=== PATIENT | female | born 1950 | race Caucasian/White ===

== ENCOUNTER 2019-02-13 09:48 | Day surgery (SDC) | payer MEDICARE, BC ==
[~2019-02-13 09:48] MED LIST: CEFAZOLIN 1 GM/D5W RTU 1 GM/50 ML RTUPB IV ONE; LACTATED RINGERS 1000 ML IV PRN; LIDOCAINE 0.5% INJ-PF (5 MG/ML) 50 ML SDV SUBCUT PRN
[2019-02-13 10:34] LABS: APPEARANCE,URINE CLEAR; BILIRUBIN,URINE NEGATIVE (NEGATIVE); COLOR,URINE YELLOW; GLUCOSE, URINE >=500 mg/dL (NEGATIVE); KETONES,URINE NEGATIVE (NEGATIVE); LEUKOCYTE ESTERASE,URINE SMALL (NEGATIVE); NITRITE,URINE NEGATIVE (NEGATIVE); PROTEIN,URINE NEGATIVE (NEGATIVE); URINE SPECIFIC GRAVITY 1.029; UROBILINOGEN,URINE NEGATIVE mg/dL (<2.0)
--- NOTE | 2019-02-13 10:46 | RADIOLOGY REPORT (SQ) ---
EXAM DESCRIPTION: CHEST SINGLE VIEW COMPLETED DATE/TIME: 02/13/2019 10:20 am REASON FOR STUDY: PRE OP COMPARISON: None. EXAM PARAMETERS: NUMBER OF VIEWS: One view. TECHNIQUE: Single frontal radiographic view of the chest acquired. RADIATION DOSE: NA LIMITATIONS: None. FINDINGS: LUNGS AND PLEURA: No opacities, masses or pneumothorax. No pleural effusion. MEDIASTINUM AND HILAR STRUCTURES: No masses. Contour normal. HEART AND VASCULAR STRUCTURES: Heart normal in size. Normal vasculature. BONES: No acute findings. HARDWARE: None in the chest. OTHER: No other significant finding. IMPRESSION: NO ACUTE RADIOGRAPHIC FINDING IN THE CHEST. TECHNICAL DOCUMENTATION: JOB ID: [id number] [employer]- All Rights Reserved Reading location - IP/workstation name: [email or web address]
[2019-02-13 10:47] LABS: ABSOLUTE BASOPHILS # (AUTO) 0.1 10^3/uL (0.0-0.2); ABSOLUTE EOSINOPHILS # (AUTO) 0.1 10^3/uL (0.0-0.6); ABSOLUTE LYMPHOCYTES (AUTO) 3.1 10^3/uL (0.5-4.7); ABSOLUTE MONOCYTES (AUTO) 0.6 10^3/uL (0.1-1.4); ABSOLUTE NEUT (AUTO) 3.9 10^3/uL (1.7-8.2); BASOPHILS % (AUTO) 0.7 % (0-2); EOSINOPHILS % (AUTO) 1.3 % (0-6); HEMATOCRIT 39.3 % (36.0-47.0); HEMOGLOBIN 12.8 g/dL (12.0-15.5); LYMPHOCYTES % (AUTO) 40.3 % (13-45); MEAN CORPUSCULAR HEMOGLOBIN 27.8 pg (27.0-33.4); MEAN CORPUSCULAR HGB CONC 32.6 g/dL (32.0-36.0); MEAN CORPUSCULAR VOLUME 85 fl (80-97); MONOCYTES % (AUTO) 7.2 % (3-13); PLATELET COUNT 354 10^3/uL (150-450); RED BLOOD COUNT 4.61 10^6/uL (3.72-5.28); RED CELL DISTRIBUTION WIDTH 16.1 % (11.5-14.0); SEGMENTED NEUTROPHILS % (AUTO) 50.5 % (42-78); TOTAL CELLS COUNTED % (AUTO) 100 %; WHITE BLOOD COUNT 7.7 10^3/uL (4.0-10.5)
[2019-02-13 11:07] LABS: INTERNATIONAL RATION (INR) 0.92; PARTIAL THROMBOPLASTIN TIME 25.9 SEC (23.5-35.8); PROTHROMBIN TIME 12.4 SEC (11.4-15.4)
[2019-02-13] MEDS ORDERED: ONDANSETRON HCL INJ/PF 4 MG/2 ML SDV ONE (11:23)
[2019-02-13] MEDS ORDERED: RINGERS SOLUTION,LACTATED 250 ML IV ONE (11:31)
[2019-02-13] MEDS ORDERED: MIDAZOLAM 2 MG/2 ML INJ ONE (11:33)
[2019-02-13] MEDS ORDERED: PROPOFOL INJ 200 MG/20 ML VIAL IV ONE (11:33)
[2019-02-13] MEDS ORDERED: FENTANYL CITRATE INJ/PF 100 MCG/2 ML AMPUL ONE (11:33)
[2019-02-13] MEDS ORDERED: BUPIVACAINE HCL 0.5 % INJ/PF 30 ML SDV ONE (11:43)
[2019-02-13] MEDS ORDERED: LIDOCAINE 1% INJ-PF (10 MG/ML) 30 ML SDV ONE (11:43)
[2019-02-13] MEDS ORDERED: EPINEPHRINE INJ/PF 1 MG/1 ML AMPULE ONE (11:44)
[2019-02-13] MEDS ORDERED: DIPHENHYDRAMINE HCL 50 MG/ML VIAL IV PRN (12:18)
[2019-02-13] MEDS ORDERED: MORPHINE SULFATE 10 MG/ML INJ IV PRN (12:18)
[2019-02-13] MEDS ORDERED: MEPERIDINE HCL/PF INJ 25 MG/1 ML DISP.SYRIN IV PRN (12:18)
[2019-02-13] MEDS ORDERED: FENTANYL CITRATE INJ/PF 100 MCG/2 ML AMPUL IV PRN ×3 (12:18)
[2019-02-13] MEDS ORDERED: PROMETHAZINE HCL INJ 25 MG/1 ML VIAL IV PRN ×2 (12:18)
[2019-02-13] MEDS ORDERED: LIDOCAINE 1% INJ-PF (10 MG/ML) 30 ML SDV INJ ONE ×2 (12:28)
[2019-02-13] MEDS ORDERED: BUPIVACAINE HCL 0.5 % INJ/PF 30 ML SDV INJ ONE ×2 (12:29)
[2019-02-13] MEDS ORDERED: SODIUM BICARBONATE 8.4% INJ 50 MEQ/50 ML DISP.SYRIN IV ONE (12:30)
--- NOTE | 2019-02-13 13:22 | Operative Report ---
Operative Report DATE OF SURGERY: 02/13/19 Operative Report: After obtaining informed consent and advising the patient of the risks and benefits, including serious neurological injury, bleeding and infection, allergic reaction and , the patient was taken to the operating room. After discussion with the patient, a suitable site was marked for the impulse generator pocket. The patient was then placed comfortably in the prone position. Comfort was assessed visually and verbally. The patient was then prepped with chlorhexidine with a suitable drying time prior to drapping. The patient was evaluated under fluoroscopy in the AP view. An adequate space was found at [ T12/L1] and a midline incision site was marked to allow needle entry. The skin overlying both the midline and IPG sites were anesthetized with 1% lidocaine with bicarbonate, followed by bupivacaine 0.25% with epinephrine. Beginning at the midline incision, Sharp and blunt dissection were performed down to the underlying fascia. Using a left paramedian approach, a 14 gauge Tuohy needle was placed in the epidural space at [ T12/L1] using a loss or resistance to saline technique. A second needle using a right paramedian approach was placed in the epidural space in the same manner. An electrode was inserted through each needle and advanced u nder serial fluoroscopy views to the top of [ T9] on the right and left. After placement, lateral imaging was obtained for appropriate posterior position in the epidural space. The leads were then tested and appropriate stimulation was found after discussion with the patient. The leads were then secured using pursetrings with anchors in place. The anchors were then sutured in place. The needles were remove sequentially under fluoroscopic guidance. The anchors and pursestrings were secure. While lead positioning was occurring, [ Dr. Juno Daley] was assisting creating the pocket for the pulse generator. As soon as the pocket was made, proper hemostasis was confirmed. The skin between the midline and IPG pocket was then anesthetized with 1% lidocaine. A tunneling tool was then utilized to bring the midline electrodes to the IPG pocket. Both sites were then inspected with appropriate hemostasis. The wires were easily placed in the midline, stitched to the pocket, connected to the pulse generator which was then tested with appropriate communication. All connections were then secured and confirmed. The generator was connected to the electrodes. All hex nuts were secured. The generator was placed in the pocket and impedance was tested and was felt to be satisfactory. Good connectivity with the new generator was obtained. The wounds were then copiously irrigated with Betadine containing irrigation solution. The sites were then closed with interrupted vertical mattress sutures with 3-0 Polysorb. The skin came together nicely. The region was cleansed again followed by placement of dermabond tape and cement. When this was dry, suitable tegaderm sponge dressings were placed. The patient was then taken back to PACU for postoperative care and monitoring. PREOPERATIVE DIAGNOSIS: Lumbar Radiculopathy POSTOPERATIVE DIAGNOSIS: Lumbar Radiculopathy OPERATION: [facility] Perm SURGEON: EMILY DUONG SUPERVISOR [employer]: JUNO DALEY ANESTHESIA: LMAC TISSUE REMOVED OR ALTERED: none COMPLICATIONS: none ESTIMATED BLOOD LOSS: 5cc INTRAOPERATIVE FINDINGS: none PROCEDURE: [facility] PERM
[2019-02-13] MEDS ORDERED: OXYCODONE-ACETAMINOPHEN 5-325 MG TABLET PO PRN (13:39)
[2019-02-13] MEDS ORDERED: LORAZEPAM INJ 2 MG/1 ML VIAL ONE (14:00)
--- NOTE | 2019-02-13 15:25 | RADIOLOGY REPORT (SQ) ---
EXAM DESCRIPTION: THORACOLUMBAR SPINE AP/LAT; NO CHG FLUORO COMPLETED DATE/TIME: 02/13/2019 3:08 pm REASON FOR STUDY: SPINAL STIMULATOR PLMCT ASST WITH FLUORO IN OR M54.16 RADICULOPATHY, LUMBAR REGIO N Z79.899 OTHER HALF-WAY (CURRENT) DRUG THERAPY Z79.01 HALF-WAY (CURRENT) USE OF ANTICOAGULANTS COMPARISON: None. FLUOROSCOPY TIME: 5.1 minutes. 12 images saved to PACS. TECHNIQUE: Intra-operative images acquired during surgical procedure to evaluate progress. NUMBER OF IMAGES: 12 images. LIMITATIONS: None. FINDINGS: Images of the spine acquired during electrode placement. IMPRESSION: IMAGE(S) OBTAINED DURING PROCEDURE. COMMENT: Quality ID [id number]: Final reports for procedures using fluoroscopy that document radiation exp osure indices, or exposure time and number of fluorographic images (if radiation exposure indices are not available) Please consult full operative report of the attending physician for description of the procedure. TECHNICAL DOCUMENTATION: JOB ID: [id number] [employer]- All Rights Reserved Reading location - IP/workstation name: [email or web address]
--- NOTE | 2019-02-13 15:25 | RADIOLOGY REPORT (SQ) ---
EXAM DESCRIPTION: THORACOLUMBAR SPINE AP/LAT; NO CHG FLUORO COMPLETED DATE/TIME: 02/13/2019 3:08 pm REASON FOR STUDY: SPINAL STIMULATOR PLMCT ASST WITH FLUORO IN OR M54.16 RADICULOPATHY, LUMBAR REGIO N Z79.899 OTHER [facility] (CURRENT) DRUG THERAPY Z79.01 [facility] (CURRENT) USE OF ANTICOAGULANTS COMPARISON: None. FLUOROSCOPY TIME: 5.1 minutes. 12 images saved to PACS. TECHNIQUE: Intra-operative images acquired during surgical procedure to evaluate progress. NUMBER OF IMAGES: 12 images. LIMITATIONS: None. FINDINGS: Images of the spine acquired during electrode placement. IMPRESSION: IMAGE(S) OBTAINED DURING PROCEDURE. COMMENT: Quality ID [id number]: Final reports for procedures using fluoroscopy that document radiation exp osure indices, or exposure time and number of fluorographic images (if radiation exposure indices are not available) Please consult full operative report of the attending physician for description of the procedure. TECHNICAL DOCUMENTATION: JOB ID: [id number] [employer]- All Rights Reserved Reading location - IP/workstation name: [email or web address]
[2019-02-13] MEDS ORDERED: DIAZEPAM 5 MG TABLET ONE (15:50)
[2019-02-13 17:04] VITALS: BP 138/84
--- NOTE | 2019-02-13 22:42 | EKG REPORT ---
SEVERITY:- ABNORMAL ECG - SINUS RHYTHM INFERIOR INFARCT, AGE INDETERMINATE ANTERIOR INFARCT, OLD : Confirmed by: Nicole Mack 13-Feb-2019 22:41:18
== END 2019-02-13 17:00 | disposition home or self-care (01) ==
LOC: OROUT 09:48
PROVIDERS: ATTEND Pain Medicine Interventional Pain Medicine
DX: M54.16 Radiculopathy, lumbar region (principal); Z79.899 Other long term (current) drug therapy; Z79.01 Long term (current) use of anticoagulants; Z79.84 Long term (current) use of oral hypoglycemic drugs; J45.909 Unspecified asthma, uncomplicated; E78.5 Hyperlipidemia, unspecified; I10 Essential (primary) hypertension; E11.9 Type 2 diabetes mellitus without complications; Z79.891 Long term (current) use of opiate analgesic; M54.14 Radiculopathy, thoracic region
CPT/HCPCS: 36415; 82962; 84132; 85025; 85610; 85730; 81001; 71045; 72080; 93005; 93010; 63685; 63650; C1778; C1820 ×2; J2250; J3490 ×2; J0690; A9270; J0171; J3010; J2060; J2405; J2704